=== PATIENT | female | born 1935 | race Caucasian/White ===

== ENCOUNTER 2016-08-20 11:02 | Day surgery (SDC) | payer MEDICARE ==
[~2016-08-20 11:02] MED LIST: PROPOFOL 200 MG/20 ML AMP IV ONE
[2016-08-20] MEDS ORDERED: GABA300C5 PO (11:55)
[2016-08-20] MEDS ORDERED: ASPI325T33 PO (11:55)
[2016-08-20] MEDS ORDERED: LABE100T2 PO (11:55)
[2016-08-20] MEDS ORDERED: PRIL20CA9 PO (11:55)
[2016-08-20] MEDS ORDERED: LATA.005%O EACH EYE (11:55)
[2016-08-20] MEDS ORDERED: ZETI10TA5 PO (11:55)
[2016-08-20] MEDS ORDERED: ACET-703 PO (11:55)
[2016-08-20] MEDS ORDERED: LOSA100T PO (11:55)
[2016-08-20] MEDS ORDERED: INSULIN HUMAN REGULAR 1,000 UNITS/10 ML VIAL SQ PRN (12:00)
[2016-08-20] MEDS ORDERED: LACTATED RINGER'S 1000 ML IV PRN (12:00)
[2016-08-20] MEDS ORDERED: CHLORHEXIDINE GLUCONATE 2 % 1 PACK (2 CLOTHS) TOPICAL PRN (12:00)
[2016-08-20] MEDS ORDERED: METOPROLOL TARTRATE 25 MG TAB PO PRN (12:00)
[2016-08-20] MEDS ORDERED: SODIUM CHLORID 0.9% 500 ML IV PRN (12:00)
[2016-08-20] MEDS ORDERED: ceFAZolin 2 GM PREMIX 50 ML IV ONE (12:15)
[2016-08-20] MEDS: POVIDONE IODINE 5% (ANTISEPSIS KIT) 4 APPLICATIONS EACH NARE PRN ×2 (14:10→14:53)
[2016-08-20] MEDS ORDERED: LOSARTAN 50 MG TAB PO SCH (15:00)
[2016-08-20] MEDS ORDERED: LABETALOL HCL 100 MG TAB PO SCH (15:00)
[2016-08-20] MEDS ORDERED: ACETAMINOPHEN 500 MG CPLT PO PRN (15:30)
[2016-08-20] MEDS ORDERED: ACETAMINOPHEN 500 MG CPLT PO ONE (15:30)
--- NOTE | 2016-08-21 19:30 | EKG ---
Date Performed: 08/20/2016 Time Performed: 12:00:02 PTAGE: 81 years EKG: Sinus rhythm . Left axis deviation RBBB with left anterior fascicular block Abnormal ECG PREVIOUS TRACING : 08/30/2000 09.37 Compared to prior tracing no significant change DOCTOR: Rubi Saleh Interpretating Date/Time 08/21/2016 19:30:00
--- NOTE | 2016-08-22 22:39 | MR ---
cc: MARTIN AVILA M.D. DATE August 20, 2016 PROCEDURE Transesophageal echo. INDICATION Rule out severe aortic stenosis. CONSENT Full informed consent was obtained prior to the procedure. The risks of , bleeding, perforation, aspiration, foreseen and unforeseen complications were reviewed. The patient fully appeared to understand the risks. PROCEDURE DETAILS The patient was prepped in the ususal manner. The patient was anesthetized as per the Anesthesia Department. A SHANIKA was performed. FINDINGS Aortic valve is severely calcified trileaflet. There is evidence of severe aortic stenosis with a maximum gradient of 95 and valve area of 0.5. by [employer] ECHO It was Planimetered at about 0.48. All three leaflets were heavily calcified. Left ventricle function was normal. There is evidence of moderate mitral regurgitation. The tricuspid valve moved normally. LV function was well-preserved. Interatrial septum was intact. interventricular septum was intact. The right heart was intact. The aorta was visualized to 40 cm. There was no evidence of mild plaquing. CONCLUSION Severe aortic stenosis and moderate mitral regurgitation. consider cath. Martin Avila MD, FRCP,FACC JIMENA/ANKITA /2:11 PM /10:28 PM MTDD
== END 2016-08-20 15:30 | disposition home or self-care (01) ==
LOC: HROP 11:02 → HDIC 11:05 → HROP 15:30
PROVIDERS: ATTEND Internal Medicine Cardiovascular Disease
DX: I35.0 Nonrheumatic aortic (valve) stenosis (principal); I34.0 Nonrheumatic mitral (valve) insufficiency
CPT/HCPCS: 01922; 93005; 93312; 93320; 93325; J0690